=== PATIENT | male | born 2000 | race Caucasian/White ===

== ENCOUNTER 2019-03-24 13:00 | Emergency (ER) | payer BC, MEDICAID ==
[~2019-03-24] VITALS: Ht 177.8 cm; Wt 77.0 kg
[2019-03-24 13:11] VITALS: BP 119/67
[2019-03-24] MEDS ORDERED: LIDOcaine 1% w/epiNEPHrine 1:200,000 30ml vial IM ONE (14:10)
[2019-03-24] MEDS ORDERED: SULF1TAB49 PO (14:52)
== END 2019-03-24 15:09 | disposition home or self-care (01) ==
LOC: ER 13:00
DX: L02.412 Cutaneous abscess of left axilla (principal)
CPT/HCPCS: 10060; 99283; J3490